=== PATIENT | male | born 1970 | race Asian ===

== ENCOUNTER → 2019-02-09 08:15 | Outpatient (CLI) | payer OTHER, SELFPAY ==
[2019-02-09 09:38] LABS: Hemoglobin A1C% w Est Avg Glu 5.4 % (4.0-6.0)
[2019-02-09 10:03] LABS: Alanine Aminotransferase 35 IU/L (21-72); Albumin 4.3 g/dL (3.5-5.0); Albumin Globulin Ratio 1.4 (1.0-2.8); Alkaline Phosphatase 74 U/L (38-126); Aspartate Aminotransferase 27 IU/L (17-59); Bilirubin Total 0.2 mg/dL (0.2-1.3); Blood Urea Nitrogen 12 mg/dL (9-20); Calcium 9.3 mg/dL (8.4-10.2); Carbon Dioxide 27 mmol/L (22-32); Chloride 104 mmol/L (98-107); Cholesterol 154 mg/dL (140-199); Estimated Glomerular Filt Rate > 60.0 mL/min (>60); Glucose 93 mg/dL (70-100); HDL Cholesterol 30 mg/dL (40-60); HEMOLYSIS < 15 (0-50); LDL Cholesterol Calculated 102 mg/dL (<100); Potassium 4.1 mmol/L (3.4-5.1); Sodium 140 mmol/L (137-145); Total Protein 7.3 g/dL (6.3-8.2); Triglycerides 108 mg/dL (35-150)
[2019-02-09 10:25] LABS: Thyroid Stimulating Hormone 1.78 uIU/mL (0.47-4.68)
== END ==
PROVIDERS: Visit Provider Internal Medicine Cardiovascular Disease
DX: R06.02 Shortness of breath (principal); I21.4 Non-ST elevation (NSTEMI) myocardial infarction; E78.6 Lipoprotein deficiency
CPT/HCPCS: 36415; 80053; 80061; 83036; 84443

== ENCOUNTER 2019-06-17 12:02 | Emergency (ER) | payer OTHER, SELFPAY ==
[2019-06-17 12:09] VITALS: BP 122/75; PULSE 70; RESP 18; TEMP 36.4; O2SAT 100
--- NOTE | 2019-06-17 12:16 | DI.CT.S_ITS ---
PROCEDURE: CT HEAD/BRAIN WO CON INDICATIONS: heavy wood vs head. pt on plavix / asa TECHNIQUE: Noncontrast 4.5 mm thick angled axial sections acquired from the foramen magnum to the vertex, with coronal and sagittal reformats. For radiation dose reduction, the following was used: automated exposure control, adjustment of mA and/or kV according to patient size. COMPARISON: None. FINDINGS: Image quality: Excellent. CSF spaces: Basal cisterns are patent. No extra-axial fluid collections. There is asymmetry of the lateral ventricles, particularly anteriorly, which may simply represent normal congenital asymmetry versus the presence of an incidental arachnoid cyst, which may bow the septum pellucidum to the left. Brain: No midline shift. No intracranial masses or hemorrhage. Olivarez-white matter interface is normal. Lateral ventricular sinuses as described above. Skull and face: Calvarium and visualized facial bones are intact, without suspicious lesions. Sinuses: Visualized sinuses and mastoids are clear. IMPRESSION: 1. No evidence of acute stroke, hemorrhage, or mass. 2. Note made of congenital asymmetry of the lateral ventricles versus incidental arachnoid cyst, of doubtful significance. Dictated by: Mu Torre M.D. on 06/17/2019 at 13:01 Approved by: Mu Torre M.D. on 06/17/2019 at 13:13
[2019-06-17 13:40] VITALS: BP 110/78; PULSE 57; RESP 15
[2019-06-17 13:50] VITALS: BP 119/71; PULSE 54; RESP 15
[2019-06-17 14:20] VITALS: BP 143/83; PULSE 59; RESP 14
[2019-06-17] MEDS: TET,DIPH,PERTUSS(ACELL),VAC/PF 0.5 ML SYRINGE IM (14:30)
--- NOTE | 2019-06-17 14:36 | ED_ITS ---
HPI - Head Injury General Chief complaint: Head Injury Stated complaint: head/bleeding injury at home-heart patient Time Seen by Provider: 06/17/19 12:27 Source: patient Mode of arrival: ambulatory Limitations: no limitations History of Present Illness HPI Narrative: Patient comes emergency department complaining of headache after a large piece of wood fell on the back of his head. The patient takes aspirin and Plavix. He denies losing consciousness or experiencing any neurologic deficits after the incident. He states the this incident happened about 3 hours ago. Patient denies any nausea vomiting. He has noticed an area of swelling and pain on the back of his head. He has also noticed some bleeding from the area. No other complaints at this time. He rates his headache a 5/10. Nothing makes or better worse. Related Data Allergies Allergy/AdvReac Type Severity Reaction Status Date / Time No Known Drug Allergies Allergy Verified 06/17/19 12:12 Review of Systems Review of Systems ROS Unobtainable: All systems reviewed & are unremarkable except as noted in HPI and below Constitutional Constitutional: Denies chills, Denies fatigue, Denies fever(s), Denies frequent falls, Reports headache(s), Denies lethargy and Denies weakness Eyes Eyes: Denies change in vision, Denies eye discharge, Denies irritation and Denies loss of vision ENT Ears, Nose, Mouth, and Throat: Denies change in voice, Denies dizziness, Reports headache(s), Denies neck pain, Denies sore throat and Denies throat swelling Cardiovascular Cardiovascular: Denies chest pain, Denies irregular heart rhythm, Denies lightheadedness, Denies palpitations, Denies dyspnea, Denies dyspnea on exertion and Denies orthopnea Respiratory Respiratory: Denies cough, Denies dyspnea, Denies dyspnea on exertion and Denies wheezing Gastrointestinal Gastrointestinal: Denies abdominal pain, Denies change in bowel habits, Denies diarrhea, Denies nausea and Denies vomiting Genitourinary Genitourinary: Denies hematuria, Denies flank pain, Denies urinary incontinence and Denies urinary urgency Musculoskeletal Musculoskeletal: Denies back pain, Denies muscle weakness, Denies neck pain, Denies numbness and Denies tingling Integumentary/Breasts Skin/Breast: Denies pruritus, Denies erythema, Denies rash and Denies wounds Neurologic Neurologic: Denies behavioral changes, Denies confusion, Denies dizziness, Denies frequent falls, Reports headache(s), Denies loss of vision, Denies numbness, Denies tingling and Denies weakness Psychiatric Psychiatric: Denies anxiety, Denies behavioral changes, Denies confusion, Denies depression, Denies homicidal ideation and Denies suicidal ideation Endocrine Endocrine: Denies fatigue, Denies flushing and Denies palpitations Hematologic/Lymphatic Hematologic/Lymphatic: Denies easy bruising Allergic/Immunologic Allergic/Immunologic: Denies urticaria, Denies throat swelling and Denies wheezing [facility] Medical History Atrial fibrillation (Acute) Surgical History No pertinent past surgical history (Acute) Social History Smoking Status: Current every day smoker Social History Smoking Status: Current every day smoker Exam Initial Vital Signs Initial Vital Signs: Vital Signs Temperature 97.6 F 06/17/19 12:09 Pulse Rate 70 06/17/19 12:09 Respiratory Rate 18 06/17/19 12:09 Blood Pressure 122/75 06/17/19 12:09 Pulse Oximetry 100 06/17/19 12:09 Const General: cooperative and well developed Nutritional Appearance: well nourished Orientation: alert, awake, oriented x3 and not confused [facility] Head: normocephalic and contusion (3 cm diameter, with centrally located skin tear; no laceration) Ears: external ears normal Nose: external nose normal and No nasal discharge Face and sinus: face symmetric and No dry mucous membranes Mouth: oral mucosae normal and moist mucous membranes Teeth and gingiva: dentition normal Eyes General: appearance normal, both eyes and all related structures Eyelids: eyelids normal Conjunctivae: conjunctivae normal Sclera: sclerae normal Pupils: PERRL EOM: EOM intact bilaterally Neck Neck: normal visual inspection, trachea midline, No lymphadenopathy, No midline deformity and No JVD Lymphatic: No lymphedema Chest Chest: normal inspection of the chest Resp Effort & Inspection: normal respiratory effort, able to speak in complete sentences, no respiratory distress and no use of accessory muscles Auscultation: clear to auscultation bilaterally, no rales, no rhonchi and no wheezes Cardio Rate: regular rate Rhythm: regular rhythm Heart Sounds: no click, no gallops, no murmurs and no rubs Pulses: normal peripheral pulses GI Inspection: non-distended Palpation: soft, no hepatosplenomegaly, No guarding, No pulsatile mass and No tender Back/Spine/Pelvis Back: No CVA tenderness Cervical Spine: cervical ROM normal and No pain with cervical ROM Thoracic/Lumbar Spine: thoracic and lumbar spine normal to inspection Skin General: no rashes or lesions noted, No jaundice and No petechiae Neuro General: alert, oriented x3, gait normal and no focal motor deficits Speech: speech normal Extrem General: full ROM, no clubbing, cyanosis or edema, no pedal edema and no calf tenderness Psych Appearance: well kempt Mental Status: mental status grossly normal Attitude: cooperative Thought Content: normal and suicidality Judgment: judgment good Course Course Course Narrative: Patient was worked up with CT of the head, which was found to be negative. I discussed with him home management of symptoms, as well as the usual indications for return. Orders Ordered: Discontinued Medications Diphtheria/Tetanus/Acell Pertussis (Adacel) 0.5 ml IM .ONCE ONE Stop: 06/17/19 12:18 Last Admin: 06/17/19 14:30 Dose: 0.5 ml Documented by: SEBASTIAN Vital Signs Vital signs: Vital Signs - 8 hr 06/17/19 12:09 Temperature 97.6 F Pulse Rate 70 Respiratory Rate 18 Blood Pressure 122/75 Pulse Oximetry 100 MDM - Head Injury Medical Records Attestation: I reviewed the patient's medical records. Imaging Data CT scan - head: Radiologist's impression: [place] [address] CT Scan Report Signed Patient: Dannie Tellez#: [id number] : 1970Acct:[id number] Age/Sex: 49 / MDate of Service: 06/17/19 Loc: ED Accession Number: [id number] Procedure: CT head/brain wo con Ordering Provider: Dinah Alberts MD PROCEDURE: CT HEAD/BRAIN WO CON INDICATIONS: heavy wood vs head. pt on plavix / asa TECHNIQUE: Noncontrast 4.5 mm thick angled axial sections acquired from the foramen magnum to the vertex, with coronal and sagittal reformats. For radiation dose reduction, the following was used: automated exposure control, adjustment of mA and/or kV according to patient size. COMPARISON: None. FINDINGS: Image quality: Excellent. CSF spaces: Basal cisterns are patent. No extra-axial fluid collections. There is asymmetry of the lateral ventricles, particularly anteriorly, which may simply represent normal congenital asymmetry versus the presence of an incidental arachnoid cyst, which may bow the septum pellucidum to the left. Brain: No midline shift. No intracranial masses or hemorrhage. Olivarez-white matter interface is normal. Lateral ventricular sinuses as described above. Skull and face: Calvarium and visualized facial bones are intact, without suspicious lesions. Sinuses: Visualized sinuses and mastoids are clear. IMPRESSION: 1. No evidence of acute stroke, hemorrhage, or mass. 2. Note made of congenital asymmetry of the lateral ventricles versus incidental arachnoid cyst, of doubtful significance. Dictated by: Mu Torre M.D. on 06/17/2019 at 13:01 Approved by: Mu Torre M.D. on 06/17/2019 at 13:13 Discharge Plan Departure Patient Disposition: Home Clinical Impression: Closed head injury Qualifiers: Encounter type: initial encounter Qualified Code(s): S09.90XA - Unspecified injury of head, initial encounter Scalp abrasion Qualifiers: Encounter type: initial encounter Qualified Code(s): S00.01XA - Abrasion of scalp, initial encounter Discharge Date/Time: 06/17/19 15:14 Instructions: DI for Closed Head Injury Activity Restrictions/Additional Instructions: Your head CT looks good. There is no evidence of bleeding in your brain. Your wound may lose for the next 24 hours, because of the medications your on. However, this will scab over, and the bleeding will stop. Referrals: [facility] [Provider Group]
[2019-06-17 15:07] VITALS: BP 139/77; PULSE 52; RESP 14; O2SAT 100
== END 2019-06-17 15:14 | disposition home or self-care (01) ==
PROVIDERS: Emergency Provider Emergency Medicine
DX: S09.90XA Unspecified injury of head, initial encounter (principal); S00.01XA Abrasion of scalp, initial encounter; Z23 Encounter for immunization
CPT/HCPCS: 70450; 90471; 99283; 90715

== ENCOUNTER → 2020-04-23 08:13 | Outpatient (CLI) | payer OTHER, SELFPAY ==
[2020-04-23 10:47] LABS: Cholesterol 137 mg/dL (140-199); HDL Cholesterol 41 mg/dL (40-60); LDL Cholesterol Calculated 70 mg/dL (<100); Triglycerides 131 mg/dL (35-150)
== END ==
PROVIDERS: Referring Provider Internal Medicine Cardiovascular Disease; Visit Provider Internal Medicine Cardiovascular Disease
DX: E78.6 Lipoprotein deficiency (principal)
CPT/HCPCS: 36415; 80061

== ENCOUNTER → 2021-10-30 09:03 | Outpatient (CLI) | payer OTHER, SELFPAY ==
--- NOTE | 2021-10-30 09:05 | DI.ECHO.S_ITS ---
[facility]---------+ [facility] +---------+ : : [address] : : : : [id number] : : : : Phone: [phone]+ Echocardiogram Report + + :Name: MEHDI VICENTE Study Date: 10/30/2021 Height: 67 in : :[facility] ReadingLocation: Weight: 170 lb : : Gender: Male BSA: 1.9 m2 : :: 1970 Age: 51 yrs BP: 112/72 mmHg: :Reason For Study: ATHEROSCLEROTIC HEART DISEASE : :Ordering Physician: MELANIE, : :DAMIÁN Performed By: Gerda Kauffman : :Referring: DAMIÁN NAVARRO : + + Interpretation Summary The left ventricle is normal in size and wall thickness. The ejection fraction is estimated to be 55-60%. There appears to be basal inferior wall and subtle mid posterior lateral wall hypokinesis. The right ventricle is normal in size and function. No significant valvular pathology seen. The IVC is of normal diameter and collapses greater than 50% with a sniff. This suggests a low right atrial pressure of 3 mm Hg. Mild atherosclerotic plaque(s) in the aortic arch. Procedure: A two-dimensional transthoracic echocardiogram with color flow and Doppler was performed. The study quality was technically adequate. Comparison is made with the echocardiogram of 12/19/2016. The patient was in sinus rhythm with heart rates between 46-70 bpm during the exam. Left Ventricle: The left ventricle is normal in size and wall thickness. There is no thrombus. The ejection fraction is estimated to be 55-60%. There appears to be basal inferior wall and subtle mid posterior lateral wall hypokinesis. MV E/A: 1.7 Med Peak E' Aureliano: 7.0 cm/sec E/E' med: 12.2. Right Ventricle: The right ventricle is normal in size and function. Atria: The left atrial size is normal. Right atrial size is normal. There is no Doppler evidence for an interatrial shunt. Mitral Valve: The mitral valve is normal in structure and function. There is trace mitral regurgitation. Aortic Valve: The aortic valve is trileaflet. The aortic valve opens well. There is no aortic valve stenosis. No aortic regurgitation is present. Tricuspid Valve: The tricuspid valve is normal in structure and function. There is trace tricuspid regurgitation. Pulmonary artery pressures cannot be estimated because of the lack of a measurable TR jet velocity. Pulmonic Valve: The pulmonic valve is not well seen, but is grossly normal. There is no pulmonic valvular regurgitation. Great Vessels: The aortic root is normal size. The dimensions of the ascending aorta are normal. Mild atherosclerotic plaque(s) in the aortic arch. The IVC is of normal diameter and collapses greater than 50% with a sniff. This suggests a low right atrial pressure of 3 mm Hg. Pericardium/ Pleura There is no pericardial effusion. There is no pleural effusion. MMode/2D Measurements & Calculations LVIDd: 4.9 cm LVOT diam: 2.1 cm LVIDs: 3.1 cm Ao root diam: 3.2 cm FS: 36.7 % asc Aorta Diam: 3.3 cm IVSd: 1.0 cm Ao Arch Diam (Prox Trans): 2.6 cm LVPWd: 0.77 cm LV romero. diameter/BSA (cm/m^2): 2.6 LV sys. diameter/BSA (cm/m^2): 1.6 LA A2 area: 17.4 cm2 RA long axis: 4.6 cm LA A4 area: 15.6 cm2 RA area: 15.0 cm2 LA length (vol): 4.8 cm RA vol: 42.3 ml LA vol: 48.0 ml RA : 22.4 ml/m2 LA vol index: 25.4 ml/m2 IVC diam: 1.8 cm RVD1 (basal): 3.2 cm TAPSE: 1.9 cm Doppler Measurements & Calculations Ao V2 max: 155.1 cm/sec LVOT Max Aureliano: 66.3 cm/sec Ao V2 mean: 109.8 cm/sec LV V1 max P.8 mmHg Ao max P.6 mmHg LV V1 VTI: 15.6 cm Ao mean P.3 mmHg BERNARDO(I,D): 1.4 cm2 Ao V2 VTI: 36.8 cm BERNARDO(V,D): 1.4 cm2 sev ratio: 0.43 BERNARDO indexed to BSA (cm^2/m^2): 0.75 MV E max aureliano: 84.9 cm/sec PA V2 max: 95.3 cm/sec MV A max aureliano: 48.7 cm/sec PA V2 mean: 70.0 cm/sec MV E/A: 1.7 PA mean P.2 mmHg Med Peak E' Aureliano: 7.0 cm/sec PA pr(Accel): 36.2 mmHg E/E' med: 12.2 Lat Peak E' Aureliano: 8.7 cm/sec E/E' lat: 9.7 E/e' average: 11.0 MV dec time: 0.24 sec SV([facility]): 52.3 ml Reading Physician:03:00 PM
== END ==
PROVIDERS: PCP Student in an Organized Health Care Education/Training Program; Referring Provider Internal Medicine Cardiovascular Disease; Visit Provider Internal Medicine Cardiovascular Disease
DX: I25.10 Atherosclerotic heart disease of native coronary artery without angina pectoris (principal); I70.0 Atherosclerosis of aorta
CPT/HCPCS: 93306

== ENCOUNTER → 2022-07-09 07:23 | Outpatient (CLI) | payer OTHER, SELFPAY ==
[2022-07-09 09:16] LABS: Alanine Aminotransferase 33 IU/L (<50); Albumin 4.3 g/dL (3.5-5.0); Albumin Globulin Ratio 1.4 (1.0-2.8); Alkaline Phosphatase 77 U/L (38-126); Aspartate Aminotransferase 28 IU/L (17-59); BUN Creatinine Ratio 9.5 (6-22); Bilirubin Total 0.4 mg/dL (0.2-1.3); Blood Urea Nitrogen 9 mg/dL (9-20); Carbon Dioxide 27 mmol/L (22-32); Chloride 103 mmol/L (98-107); Cholesterol 163 mg/dL (140-199); Estimated Glomerular Filt Rate > 60 mL/min (>60); Globulin 3.1 g/dL (1.7-4.1); Glucose 93 mg/dL (70-100); HDL Cholesterol 35 mg/dL (40-60); HEMOLYSIS < 15 (0-50); LDL Cholesterol Calculated 100 mg/dL (<100); Potassium 4.1 mmol/L (3.4-5.1); Sodium 138 mmol/L (137-145); Total Protein 7.4 g/dL (6.3-8.2); Triglycerides 138 mg/dL (35-150)
[2022-07-09 09:42] LABS: Thyroid Stimulating Hormone 3.11 uIU/mL (0.47-4.68)
== END ==
PROVIDERS: PCP Student in an Organized Health Care Education/Training Program; Referring Provider Internal Medicine Cardiovascular Disease; Visit Provider Internal Medicine Cardiovascular Disease
DX: I25.10 Atherosclerotic heart disease of native coronary artery without angina pectoris (principal); E78.6 Lipoprotein deficiency; E03.9 Hypothyroidism, unspecified; Z95.5 Presence of coronary angioplasty implant and graft
CPT/HCPCS: 36415; 80053; 80061; 83735; 84443

== ENCOUNTER → 2024-08-11 07:29 | Outpatient (CLI) | payer OTHER, SELFPAY ==
[2024-08-11 08:10] LABS: Hematocrit 40.1 % (41-53); Hemoglobin 13.5 g/dL (13.5-17.5); Mean Corpuscular HGB Conc 33.6 % (30-36); Mean Corpuscular Hemoglobin 30.3 PG (26-34); Mean Corpuscular Volume 90.1 fL (80-100); Platelet Count 259 X10^3/uL (150-400); Red Blood Cell Count 4.45 X10^6/uL (4.5-5.9); Red Cell Distribution Width 13.2 % (11.6-14.8)
[2024-08-11 08:44] LABS: Alanine Aminotransferase 23 IU/L (<50); Albumin 4.2 g/dL (3.5-5.0); Albumin Globulin Ratio 1.6 (1.0-2.8); Alkaline Phosphatase 68 U/L (38-126); Aspartate Aminotransferase 24 IU/L (17-59); BUN Creatinine Ratio 10.5 (6-22); Bilirubin Total 0.5 mg/dL (0.2-1.3); Blood Urea Nitrogen 12 mg/dL (9-20); Calcium 9.5 mg/dL (8.4-10.2); Carbon Dioxide 28 mmol/L (22-32); Chloride 105 mmol/L (98-107); Cholesterol 140 mg/dL (140-199); Estimated Glomerular Filt Rate > 60 mL/min (>60); Globulin 2.7 g/dL (1.7-4.1); Glucose 103 mg/dL (70-100); HDL Cholesterol 41 mg/dL (40-60); HEMOLYSIS < 15 (0-50); LDL Cholesterol Calculated 82 mg/dL (<100); Sodium 138 mmol/L (137-145); Total Protein 6.9 g/dL (6.3-8.2); Triglycerides 84 mg/dL (35-150)
== END ==
PROVIDERS: PCP Family Medicine; Referring Provider Internal Medicine Cardiovascular Disease; Visit Provider Internal Medicine Cardiovascular Disease
DX: I25.10 Atherosclerotic heart disease of native coronary artery without angina pectoris (principal); E78.6 Lipoprotein deficiency
CPT/HCPCS: 36415; 80053; 80061; 85027

== ENCOUNTER → 2025-03-29 06:40 | Outpatient (CLI) | payer OTHER, SELFPAY ==
[2025-03-29 08:08] LABS: Add Manual Diff / Slide Review NO; Basophils Absolute Auto 100 /uL (0-100); Basophils Percent Auto 0.7 % (0-2); Eosinophils Absolute Auto 500 /uL (0-450); Eosinophils Percent Auto 6.2 % (2-4); Hemoglobin 13.8 g/dL (13.5-17.5); Lymphocytes Absolute Auto 2200 /uL (1100-4500); Lymphocytes Percent Auto 26.9 % (25-40); Mean Corpuscular HGB Conc 34.6 % (30-36); Mean Corpuscular Hemoglobin 31.2 PG (26-34); Mean Corpuscular Volume 90.1 fL (80-100); Monocytes Absolute Auto 600 /uL (0-900); Monocytes Percent Auto 7.5 % (3-14); Neutrophils Absolute Auto 4900 /uL (1500-7000); Neutrophils Percent Auto 58.7 % (50-75); Platelet Count 243 X10^3/uL (150-400); Red Blood Cell Count 4.43 X10^6/uL (4.5-5.9); Red Cell Distribution Width 13.1 % (11.6-14.8); White Blood Cell Count 8.3 X10^3/uL (4.5-11.0)
[2025-03-29 08:19] LABS: INR 0.9 (0.9-1.3); Prothrombin Time 10.7 SECONDS (9.4-12.5)
[2025-03-29 08:27] LABS: Alanine Aminotransferase 31 IU/L (<50); Albumin 4.3 g/dL (3.5-5.0); Albumin Globulin Ratio 1.7 (1.0-2.8); Alkaline Phosphatase 61 U/L (38-126); Aspartate Aminotransferase 26 IU/L (17-59); BUN Creatinine Ratio 13.6 (6-22); Bilirubin Total 0.4 mg/dL (0.2-1.3); Blood Urea Nitrogen 14 mg/dL (9-20); Calcium 9.4 mg/dL (8.4-10.2); Carbon Dioxide 25 mmol/L (22-32); Chloride 107 mmol/L (98-107); Cholesterol 73 mg/dL (140-199); Estimated Glomerular Filt Rate > 60 mL/min (>60); Globulin 2.5 g/dL (1.7-4.1); Glucose 94 mg/dL (70-99); HDL Cholesterol 44 mg/dL (40-60); HEMOLYSIS < 15 (0-50); LDL Cholesterol Calculated 15 mg/dL (<100); Potassium 4.7 mmol/L (3.4-5.1); Sodium 140 mmol/L (137-145); Total Protein 6.8 g/dL (6.3-8.2); Triglycerides 68 mg/dL (35-150)
== END ==
PROVIDERS: PCP Family Medicine; Referring Provider Internal Medicine Cardiovascular Disease; Visit Provider Internal Medicine Cardiovascular Disease
DX: E78.6 Lipoprotein deficiency (principal); I20.0 Unstable angina
CPT/HCPCS: 36415; 80053; 80061; 85025; 85610

== ENCOUNTER 2025-05-23 13:45 | Outpatient (RCR) | payer OTHER, SELFPAY ==
--- NOTE | 2025-05-19 18:00 | PT.OIE ---
Current Diagnoses Pain in left knee (05/19/25) Past Medical History (This Medical Record has been edited. Action required.) Atrial fibrillation Past Surgical History (This Medical Record has been edited. Action required.) No pertinent past surgical history Visit Care Team Role Provider Type Rajani Davidson DO Attending Provider Physician Family Provider Primary Care Provider Referring Provider Specialty: Family Practice Address: [address] [place] [address], [address], [employer] Email: [email or web address] Physical Therapy Initial Evaluation PT-OP-A Visit Information Start: 05/19/25 12:56 Freq: Status: Active Protocol: Document 05/19/25 12:56 BL (Rec: 05/19/25 13:44 BL Laptop) Out-Patient Physical Therapy Visit Information Visit Information Visit Type Initial Evaluation Visit Start Time 13:00 Visit Stop Time 13:40 Visit Number (1) 10/28 (PN by 06/19/25) Number of SEGMENT BLOCK LAYER Visits 0 PT-OP-C Subjective Start: 05/19/25 12:56 Freq: Status: Active Protocol: Document 05/19/25 12:56 BL (Rec: 05/19/25 13:44 BL Laptop) OP-PT Subjective Patient Comments Patient Comments pt presents to to the clinic with L lateral knee pain that has been present over the past two years, pt states insidious onset but reports he was duck walking in a low ceiling space and reports this may have been when his pain started. Pt reports symptoms have slightly improved over the past two years however continues to have lateral knee pain especially with palpation just distal to patella that causes pt to jump slightly. Pt also reports lateral calf pain when running. Pt denies pain in knee with bending, squatting , stair climbing. Pt denies trying anti inflammatory due to prior cardiac stent placement. Pt also denies trying topicals, heat, ice knee bracing. Patient Reported Same Progress Patient Questionnaires Lower Extremity Functional Scale LEFS Score 48 function PT-OP-D Balance Start: 05/19/25 12:56 Freq: Status: Active Protocol: Document 05/19/25 12:56 BL (Rec: 05/19/25 13:44 BL Laptop) Balance Tests Single Limb Standing Single Limb- Right 15 Single Limb- Left 15 PT-OP-H Neuro Start: 05/19/25 12:56 Freq: Status: Active Protocol: Document 05/19/25 12:56 BL (Rec: 05/19/25 13:44 BL Laptop) Sensation Evaluation Comments Summary Comments no changes in sensation noted this date. Coordination Evaluation Comments Coordination no coordination changes noted this date. Comments PT-OP-J Posture/Palpation/Skin Start: 05/19/25 12:56 Freq: Status: Active Protocol: Document 05/19/25 12:56 BL (Rec: 05/19/25 13:44 BL Laptop) Posture Evaluation Comments Posture Comments Pt sits with neutral alignment Pt stands with NBOS and equal ER of LE salvador, relatively neutral pelvis, slight pronation noted to be relatively equal bilateral. Pt ambulates with appropriate ER salvador, knee flexion, heel strike, equal step length and foot clearance. Slight L trunk shift noted with gait. Pt demos slight valgus movement with stair ambulation and jumping activities. Palpation Assessment Location L knee Palpation Details pt point tender with light palpation to lateral patella tendon area. Increased tissue tightness noted through peroneal muscle group. PT-OP-K Range of Motion Start: 05/19/25 12:56 Freq: Status: Active Protocol: Document 05/19/25 12:56 BL (Rec: 05/19/25 13:44 BL Laptop) Hip Goniometric Range of Motion Hip right Hip ROM WFL Yes left Hip ROM WFL Yes Knee Goniometric Range of Motion Knee Right Knee ROM WFL Yes Left Knee ROM WFL Yes Ankle and Foot Goniometric Range of Motion Ankle and Foot right Ankle/Foot ROM WFL Yes left Ankle/Foot ROM WFL Yes PT-OP-L Special Tests Start: 05/19/25 12:56 Freq: Status: Active Protocol: Document 05/19/25 12:56 BL (Rec: 05/20/25 11:48 BL Laptop) Special Tests Hip Special Tests Axel Test Results negative Straight Leg Raise Test Results negative Knee Special Tests Varus- 25 Degrees Test Results negative Valgus- 25 Degrees Test Results negative Varus- 0 Degrees Test Results negative Valgus- 0 Degrees Test Results negative Posterior Draw Test Results negative Anterior Draw Test Results negative PT-OP-M Strength Start: 05/19/25 12:56 Freq: Status: Active Protocol: Document 05/19/25 12:56 BL (Rec: 05/19/25 13:44 BL Laptop) Hip Strength Hip Manual Muscle Testing Right Flexion (L2) 5 Normal Abduction 5 Normal Adduction 5 Normal External Rotation 4+ Good+ Internal Rotation 5 Normal Left Flexion (L2) 5 Normal Abduction 5 Normal Adduction 5 Normal External Rotation 4+ Good+ Internal Rotation 5 Normal Knee Strength Knee Manual Muscle Testing Right Flexion (S2) 4+ Good+ Extension (L3) 5 Normal Left Flexion (S2) 4+ Good+ Extension (L3) 5 Normal Ankle/Foot Strength Ankle and Foot Manual Muscle Testing Right Dorsiflexion (L4) 5 Normal Plantarflexion (S1) 4+ Good+ Comments able to complete 24 HR with good form Left Dorsiflexion (L4) 5 Normal Plantarflexion (S1) 4+ Good+ Comments able to complete 24 HR with good form PT-OP-Q Treatments Start: 05/19/25 12:56 Freq: Status: Active Protocol: Document 05/19/25 12:56 BL (Rec: 05/19/25 13:45 BL Laptop) Therapeutic Exercises Supine Exercises strength Supine Exercise Name SL w/ ER Side left Comments 2x10 Standing Exercises posture Standing Exercise pt educated on knee alignment with gait. Name PT-OP-T Assessment and Plan Start: 05/19/25 12:56 Freq: Status: Active Protocol: Document 05/19/25 12:56 BL (Rec: 05/19/25 13:44 BL Laptop) Physical Therapy Assessment Rehab Potential Rehabilitation Good Potential Evaluation Complexity Number of Personal 1-2 Factors/ Comorbidities Number of Body 3 Systems Impaired Clinical Evolving Presentation at Evaluation Goals Three Senior Living Goal (LTG) Pt will demo improved hamstring strength to 5/5 by DC for improved knee stability with gait and climbing activities. Two Systems Management Consultant Goal (LTG) Pt will reports being able to run without increase in lateral calf pain by DC to allow for completion of exercise activities. One Short Term Goal (STG pt will be ind with HEP within 2 visits in order to ) progress toward halfway therapy goals outside of therapy visits. Senior Living Goal (LTG) Pt will report a decrease in pain to 2/10 with palpation over lateral infrapatellar bursa by DC for improved functional mobility. Assessment Summary Assessment Pt presents to the clinic this date with concerns for L lateral knee pain that has been present for 2 years. Pt demos full AROM at hips, knees and ankles bilateral as well as 5/5 muscle strength to surrounding muscle groups except knee flexors. Pt demos negative ligamentous and meniscus involvement with special testing. Pt demos difficulty with full knee flexion causing increased tension, pt demos valgus positioning with functional movements. Pt is point tender with palpation over lateral infrapatellar bursa. Pt will benefit from skilled Physical Therapy intervention for strength and endurance training as well as focus on knee mechanics to decrease strain through infra patellar tendon. If symptoms do not resolve pt may benefit from imaging to rule out additional causation of symptoms. Physical Therapy Plan Frequency and Duration Frequency of 2x/Week Treatment Duration of 12 treatment (weeks) Plan of Care Start 05/19/25 Date Plan of Care End 08/11/25 Date Next Visit Focus/Plan Next Note Type Treatment Note Next Visit Plan Advance HEP for LE strength and stability, education on knee alignment, modalities for infrapatellar bursitis.
--- NOTE | 2025-05-20 12:28 | PT.OPPOC ---
Physical, Occupational & Speech Therapy At [facility] Current Diagnoses Pain in left knee (05/19/25) Visit Care Team Role Provider Type Rajani Davidson DO Attending Provider Physician Family Provider Primary Care Provider Referring Provider Specialty: Family Practice Address: [address] [place] [address], [address], [address] Email: [email or web address] Plan Of Care PT-OP-T Assessment and Plan Start: 05/19/25 12:56 Freq: Status: Active Protocol: Document 05/19/25 12:56 BL (Rec: 05/19/25 13:44 BL Laptop) Physical Therapy Assessment Rehab Potential Rehabilitation Good Potential Evaluation Complexity Number of Personal 1-2 Factors/ Comorbidities Number of Body 3 Systems Impaired Clinical Evolving Presentation at Evaluation Goals Three Group Home Goal (LTG) Pt will demo improved hamstring strength to 5/5 by DC for improved knee stability with gait and climbing activities. Two Group Home Goal (LTG) Pt will reports being able to run without increase in lateral calf pain by DC to allow for completion of exercise activities. 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 Price Accuracy Supervisor Goal (LTG) Pt will report a decrease in pain to 2/10 with palpation over lateral infrapatellar bursa by DC for improved functional mobility. Assessment Summary Assessment Pt presents to the clinic this date with concerns for L lateral knee pain that has been present for 2 years. Pt demos full AROM at hips, knees and ankles bilateral as well as 5/5 muscle strength to surrounding muscle groups except knee flexors. Pt demos negative ligamentous and meniscus involvement with special testing. Pt demos difficulty with full knee flexion causing increased tension, pt demos valgus positioning with functional movements. Pt is point tender with palpation over lateral infrapatellar bursa. Pt will benefit from skilled Physical Therapy intervention for strength and endurance training as well as focus on knee mechanics to decrease strain through infra patellar tendon. If symptoms do not resolve pt may benefit from imaging to rule out additional causation of symptoms. Physical Therapy Plan Frequency and Duration Frequency of 2x/Week Treatment Duration of 12 treatment (weeks) Plan of Care Start 05/19/25 Date Plan of Care End 08/11/25 Date Next Visit Focus/Plan Next Note Type Treatment Note Next Visit Plan Advance HEP for LE strength and stability, education on knee alignment, modalities for infrapatellar bursitis. Plan of Care Dates Plan of Care Start Date 05/19/25 Plan of Care End Date 08/11/25 Electronically Signed by: Santi Moore, PT 05/20/25 8906 If you are in agreement with this Plan of Care, please return a signed and dated copy. I have reviewed this Plan of Care and certify that the skilled therapy services above are required to meet the patient?s needs. Physician Signature Date Printed Name and Credentials Clinical Instructor Signature Printed Name and Credentials
--- NOTE | 2025-05-23 16:03 | PT.OTN ---
Current Diagnoses Pain in left knee (05/23/25) Physical Therapy Treatment Note PT OP: Lower Back/Lower Extremity Start: 05/23/25 13:49 Freq: Status: Active Protocol: Document 05/23/25 13:49 BL (Rec: 05/23/25 14:29 BL Laptop) Out-Patient Physical Therapy Visit Information Visit Information Visit Type Treatment Note Visit Start Time 13:45 Visit Stop Time 14:25 Visit Number (2) 2/10 (PN by 06/19/25) Number of SUPERVISOR SAWING AND ASSEMBLY Visits 0 OP-PT Subjective Patient Comments Patient Comments Pt presents to the clinic this date and reports HEP is going well, states he also has a history of L sided low back pain that has been bothering him more. Therapeutic Exercises Supine Exercises Stretch Supine Exercise Name LTR strength Supine Exercise Name SL w/ ER, bridges Side left Resistance lvl 4 band Comments 2x10 Sidelying Exercises strength Sidelying Exercise clamshells Name Resistance lvl 4 band Comments 2x 10 Standing Exercises posture Standing Exercise lateral step ups Name Equipment Used 6 in step Comments cues for knee alignment Physical Therapy Assessment Goals Three Music Autographer Goal (LTG) Pt will demo improved hamstring strength to 5/5 by DC for improved knee stability with gait and climbing activities. Two Mcfp Goal (LTG) Pt will reports being able to run without increase in lateral calf pain by DC to allow for completion of exercise activities. One Short Term Goal (STG pt will be ind with HEP within 2 visits in order to ) progress toward care home therapy goals outside of therapy visits. Mcfp Goal (LTG) Pt will report a decrease in pain to 2/10 with palpation over lateral infrapatellar bursa by DC for improved functional mobility. Assessment Summary Assessment Pt tolerates session well, able to progress HEP for LE strength and endurance training, provided additional education for L IT band strengthening. Physical Therapy Plan Frequency and Duration Frequency of 2x/Week Treatment Duration of 12 treatment (weeks) Plan of Care Start 05/19/25 Date Plan of Care End 08/11/25 Date Next Visit Focus/Plan Next Note Type Treatment Note Next Visit Plan Advance HEP for LE strength and stability, education on knee alignment, modalities for infrapatellar bursitis. PT-OP-A Visit Information Start: 05/19/25 12:56 Freq: Status: Active Protocol: Document 05/19/25 12:56 BL (Rec: 05/19/25 13:44 BL Laptop) Out-Patient Physical Therapy Visit Information Visit Information Visit Type Initial Evaluation Visit Start Time 13:00 Visit Stop Time 13:40 Visit Number (1) 10/28 (PN by 06/19/25) Number of SUPERVISOR SAWING AND ASSEMBLY Visits 0 PT-OP-C Subjective Start: 05/19/25 12:56 Freq: Status: Active Protocol: Document 05/19/25 12:56 BL (Rec: 05/19/25 13:44 BL Laptop) OP-PT Subjective Patient Comments Patient Comments pt presents to to the clinic with L lateral knee pain that has been present over the past two years, pt states insidious onset but reports he was duck walking in a low ceiling space and reports this may have been when his pain started. Pt reports symptoms have slightly improved over the past two years however continues to have lateral knee pain especially with palpation just distal to patella that causes pt to jump slightly. Pt also reports lateral calf pain when running. Pt denies pain in knee with bending, squatting , stair climbing. Pt denies trying anti inflammatory due to prior cardiac stent placement. Pt also denies trying topicals, heat, ice knee bracing. Patient Reported Same Progress Patient Questionnaires Lower Extremity Functional Scale LEFS Score 48 function PT-OP-D Balance Start: 05/19/25 12:56 Freq: Status: Active Protocol: Document 05/19/25 12:56 BL (Rec: 05/19/25 13:44 BL Laptop) Balance Tests Single Limb Standing Single Limb- Right 15 Single Limb- Left 15 PT-OP-H Neuro Start: 05/19/25 12:56 Freq: Status: Active Protocol: Document 05/19/25 12:56 BL (Rec: 05/19/25 13:44 BL Laptop) Sensation Evaluation Comments Summary Comments no changes in sensation noted this date. Coordination Evaluation Comments Coordination no coordination changes noted this date. Comments PT-OP-J Posture/Palpation/Skin Start: 05/19/25 12:56 Freq: Status: Active Protocol: Document 05/19/25 12:56 BL (Rec: 05/19/25 13:44 BL Laptop) Posture Evaluation Comments Posture Comments Pt sits with neutral alignment Pt stands with NBOS and equal ER of LE salvador, relatively neutral pelvis, slight pronation noted to be relatively equal bilateral. Pt ambulates with appropriate ER salvador, knee flexion, heel strike, equal step length and foot clearance. Slight L trunk shift noted with gait. Pt demos slight valgus movement with stair ambulation and jumping activities. Palpation Assessment Location L knee Palpation Details pt point tender with light palpation to lateral patella tendon area. Increased tissue tightness noted through peroneal muscle group. PT-OP-K Range of Motion Start: 05/19/25 12:56 Freq: Status: Active Protocol: Document 05/19/25 12:56 BL (Rec: 05/19/25 13:44 BL Laptop) Hip Goniometric Range of Motion Hip right Hip ROM WFL Yes left Hip ROM WFL Yes Knee Goniometric Range of Motion Knee Right Knee ROM WFL Yes Left Knee ROM WFL Yes Ankle and Foot Goniometric Range of Motion Ankle and Foot right Ankle/Foot ROM WFL Yes left Ankle/Foot ROM WFL Yes PT-OP-L Special Tests Start: 05/19/25 12:56 Freq: Status: Active Protocol: Document 05/19/25 12:56 BL (Rec: 05/20/25 11:48 BL Laptop) Special Tests Hip Special Tests Axel Test Results negative Straight Leg Raise Test Results negative Knee Special Tests Varus- 25 Degrees Test Results negative Valgus- 25 Degrees Test Results negative Varus- 0 Degrees Test Results negative Valgus- 0 Degrees Test Results negative Posterior Draw Test Results negative Anterior Draw Test Results negative PT-OP-M Strength Start: 05/19/25 12:56 Freq: Status: Active Protocol: Document 05/19/25 12:56 BL (Rec: 05/19/25 13:44 BL Laptop) Hip Strength Hip Manual Muscle Testing Right Flexion (L2) 5 Normal Abduction 5 Normal Adduction 5 Normal External Rotation 4+ Good+ Internal Rotation 5 Normal Left Flexion (L2) 5 Normal Abduction 5 Normal Adduction 5 Normal External Rotation 4+ Good+ Internal Rotation 5 Normal Knee Strength Knee Manual Muscle Testing Right Flexion (S2) 4+ Good+ Extension (L3) 5 Normal Left Flexion (S2) 4+ Good+ Extension (L3) 5 Normal Ankle/Foot Strength Ankle and Foot Manual Muscle Testing Right Dorsiflexion (L4) 5 Normal Plantarflexion (S1) 4+ Good+ Comments able to complete 24 HR with good form Left Dorsiflexion (L4) 5 Normal Plantarflexion (S1) 4+ Good+ Comments able to complete 24 HR with good form PT-OP-Q Treatments Start: 05/19/25 12:56 Freq: Status: Active Protocol: Document 05/19/25 12:56 BL (Rec: 05/19/25 13:45 BL Laptop) Therapeutic Exercises Supine Exercises strength Supine Exercise Name SL w/ ER Side left Comments 2x10 Standing Exercises posture Standing Exercise pt educated on knee alignment with gait. Name PT-OP-T Assessment and Plan Start: 05/19/25 12:56 Freq: Status: Active Protocol: Document 05/19/25 12:56 BL (Rec: 05/19/25 13:44 BL Laptop) Physical Therapy Assessment Rehab Potential Rehabilitation Good Potential Evaluation Complexity Number of Personal 1-2 Factors/ Comorbidities Number of Body 3 Systems Impaired Clinical Evolving Presentation at Evaluation Goals Three Mcfp Goal (LTG) Pt will demo improved hamstring strength to 5/5 by DC for improved knee stability with gait and climbing activities. Two Mcfp Goal (LTG) Pt will reports being able to run without increase in lateral calf pain by DC to allow for completion of exercise activities. One Short Term Goal (STG pt will be ind with HEP within 2 visits in order to ) progress toward care home therapy goals outside of therapy visits. Mcfp Goal (LTG) Pt will report a decrease in pain to 2/10 with palpation over lateral infrapatellar bursa by DC for improved functional mobility. Assessment Summary Assessment Pt presents to the clinic this date with concerns for L lateral knee pain that has been present for 2 years. Pt demos full AROM at hips, knees and ankles bilateral as well as 5/5 muscle strength to surrounding muscle groups except knee flexors. Pt demos negative ligamentous and meniscus involvement with special testing. Pt demos difficulty with full knee flexion causing increased tension, pt demos valgus positioning with functional movements. Pt is point tender with palpation over lateral infrapatellar bursa. Pt will benefit from skilled Physical Therapy intervention for strength and endurance training as well as focus on knee mechanics to decrease strain through infra patellar tendon. If symptoms do not resolve pt may benefit from imaging to rule out additional causation of symptoms. Physical Therapy Plan Frequency and Duration Frequency of 2x/Week Treatment Duration of 12 treatment (weeks) Plan of Care Start 05/19/25 Date Plan of Care End 08/11/25 Date Next Visit Focus/Plan Next Note Type Treatment Note Next Visit Plan Advance HEP for LE strength and stability, education on knee alignment, modalities for infrapatellar bursitis.
--- NOTE | 2025-06-28 14:05 | PT.OPDS ---
Current Diagnoses Pain in left knee (05/23/25) Visit Care Team Role Provider Type Rajani Davidson DO Attending Provider Physician Family Provider Primary Care Provider Referring Provider Specialty: Family Practice Address: [address] [place] [address], [address], [place], [address] Email: [email or web address] Visit Number Visit Number (2) 2/10 (PN by 06/19/25) Discharge Summary Unable to follow up with pt, plan to DC pt at this time. PT OP: Lower Back/Lower Extremity Start: 05/23/25 13:49 Freq: Status: Active Protocol: Document 05/23/25 13:49 BL (Rec: 05/23/25 14:29 BL Laptop) Out-Patient Physical Therapy Visit Information Visit Information Visit Type Treatment Note Visit Start Time 13:45 Visit Stop Time 14:25 Visit Number (2) 2/10 (PN by 06/19/25) Number of COMPLAINT MANAGER Visits 0 OP-PT Subjective Patient Comments Patient Comments Pt presents to the clinic this date and reports HEP is going well, states he also has a history of L sided low back pain that has been bothering him more. Therapeutic Exercises Supine Exercises Stretch Supine Exercise Name LTR strength Supine Exercise Name SL w/ ER, bridges Side left Resistance lvl 4 band Comments 2x10 Sidelying Exercises strength Sidelying Exercise clamshells Name Resistance lvl 4 band Comments 2x 10 Standing Exercises posture Standing Exercise lateral step ups Name Equipment Used 6 in step Comments cues for knee alignment Physical Therapy Assessment Goals Three Imaging Services Director Goal (LTG) Pt will demo improved hamstring strength to 5/5 by DC for improved knee stability with gait and climbing activities. Two Skilled Nursing Goal (LTG) Pt will reports being able to run without increase in lateral calf pain by DC to allow for completion of exercise activities. One Short Term Goal (STG pt will be ind with HEP within 2 visits in order to ) progress toward intermediate therapy goals outside of therapy visits. Imaging Services Director Goal (LTG) Pt will report a decrease in pain to 2/10 with palpation over lateral infrapatellar bursa by DC for improved functional mobility. Assessment Summary Assessment Pt tolerates session well, able to progress HEP for LE strength and endurance training, provided additional education for L IT band strengthening. Physical Therapy Plan Frequency and Duration Frequency of 2x/Week Treatment Duration of 12 treatment (weeks) Plan of Care Start 05/19/25 Date Plan of Care End 08/11/25 Date Next Visit Focus/Plan Next Note Type Treatment Note Next Visit Plan Advance HEP for LE strength and stability, education on knee alignment, modalities for infrapatellar bursitis.
== END 2025-06-29 13:23 | disposition home or self-care (01) ==
LOC: PHYS 13:45
PROVIDERS: Family Provider Family Medicine; PCP Family Medicine; Referring Provider Family Medicine; Visit Provider Family Medicine
DX: M25.562 Pain in left knee (principal)
CPT/HCPCS: 97110; 97162